=== PATIENT | female | born 1970 | race Caucasian/White ===

== ENCOUNTER 2024-06-29 15:40 | Outpatient (CLI) | payer MEDICAID ==
[2024-06-29] MEDS ORDERED: GADOTERATE MEGLUMINE 7.5 MMOL/15 ML VIAL IV ONE (17:18)
== END 2024-06-29 23:59 | disposition home or self-care (01) ==
LOC: MRI 15:40
PROVIDERS: ATTEND Family Medicine
DX: K86.3 Pseudocyst of pancreas (principal); K86.2 Cyst of pancreas; K76.89 Other specified diseases of liver; K85.90 Acute pancreatitis without necrosis or infection, unspecified
CPT/HCPCS: 74183; A9575